=== PATIENT | female | born 1980 | race Two or more races ===

== ENCOUNTER → 2024-01-16 15:14 | Outpatient (REF) | payer BC, SELFPAY | LOC: WDC 15:14 | PROVIDERS: ATTENDING PHYSICIAN Family Medicine | DX: Z12.31 Encounter for screening mammogram for malignant neoplasm of breast (principal) | CPT/HCPCS: 77063; 77067 ==

== ENCOUNTER → 2025-02-11 14:45 | Outpatient (REF) | payer OTHER, SELFPAY | LOC: WDC 14:45 | PROVIDERS: ATTENDING PHYSICIAN Nurse Practitioner Family; FAMILY PHYSICIAN Family Medicine | DX: Z12.31 Encounter for screening mammogram for malignant neoplasm of breast (principal) | CPT/HCPCS: 77063; 77067 ==

== ENCOUNTER 2025-04-20 23:55 | Observation (INO) | payer OTHER, SELFPAY ==
[2025-04-20 18:54] VITALS: BP 140/80
[2025-04-20 19:30] LABS: Hematocrit 38.9 % (37.0-47.0); Hemoglobin 12.1 g/dL (12.0-16.0); Mean Corp Hgb Conc. 31.1 g/dL (33.0-37.0); Mean Corpuscular Volume 80.2 fL (81.0-99.0); Nucleated Red Blood Cells % 0 %; Platelet Count 312 10^3/uL (130-400); Red Cell Dist. Width 15.3 % (11.5-14.5)
[2025-04-20 19:54] LABS: HCG, Serum Qualitative Screen Negative
[2025-04-20 19:58] LABS: ALT (SGPT) 14 U/L (0-35); AST (SGOT) 21 U/L (14-36); Albumin 4.5 g/dl (3.5-5.0); Alkaline Phosphatase 51 U/L (38-126); Blood Urea Nitrogen 13 mg/dl (7-17); Calcium 9.7 mg/dl (8.4-10.2); Carbon Dioxide 27 mmol/L (22-30); Chloride 102 mmol/L (98-107); Glucose 119 mg/dl (70-99); Lipase 118 U/L (23-300); Potassium 4.1 mmol/L (3.5-5.1); Sodium 134 mmol/L (135-145); Total Protein 7.6 g/dl (6.3-8.2); eGFR > 60.00
[2025-04-20 20:49] VITALS: BMI 29.8
[2025-04-20 20:54] VITALS: BP 123/87
[2025-04-20 21:02] VITALS: BP 112/77
[2025-04-20] MEDS: NSS 1000 IV ×2 (21:20→23:57)
[2025-04-20] MEDS: PROTONIX IV 40 MG IV (21:22)
[2025-04-20] MEDS: ZOFRAN 4 MG IV (21:22)
[2025-04-20] MEDS: DILAUDID 0.5 MG IV (21:23)
[2025-04-20 23:00] VITALS: BP 111/58
--- NOTE | 2025-04-20 23:08 | ED.GENMED ---
History of Present Illness
General
Chief Complaint: Abdominal Pain
Source: patient
Exam Limitations: none
Time Seen by Provider: 04/20/25 20:52
Nursing documentation reviewed up to this point in time: agreed with
History of Present Illness
History of Present Illness:
Patient presents to ED secondary to worsening abdominal pain associated with multiple vomiting episodes, started this morning around 11 AM. Patient had eaten breakfast this morning and had fallen asleep. When she got up, her symptoms started.
Patient reports having had similar episode 3 weeks ago, for which she was evaluated by her primary care physician with outpatient blood work. Abdominal pain described as sharp, with radiation to the back, without any alleviating or exacerbating
factors. Denies trauma. Denies fever or chills. Denies diarrhea. Denies recent change in medications or diet. Denies previous history of similar symptoms.
Review of Systems
Review of Systems
Allergies reviewed?: Yes
All Other Systems: ROS reviewed and negative except as documented in HPI and ROS
Constitutional: Reports no symptoms; Denies fever
ABD/GI: Reports abdominal pain, nausea and vomiting; Denies diarrhea
: Reports no symptoms
Musculoskeletal: Reports no symptoms
Skin: Reports no symptoms
Neurological: Reports no symptoms
Phy Exam
Physical Exam
Physical Exam:
Physical Exam
General: moderate distress, not acutely ill. afebrile
Head: nc/at. eomi
Neck: supple. normal range of motion
Heart: s1/s2 regular rate and rhythm
Lungs: no acute respiratory distress. clear bilaterally
Abdomen: normal bowel sounds. mild epigastric/RUQ tenderness to palpation
Neuro: alert and oriented x 3. no focal neurological deficits
Skin: no rash
Psychiatric: well kept. interactive and cooperative
Extremities: no edema. no calf tenderness.
Course
Orders/Labs/Results
Orders:
Orders
04/20/25 18:56
Test Result ONCE
04/20/25 19:00
Complete Blood Count/With Diff Urgent
Comprehensive Metabolic Panel Urgent
HCG, Serum Qualitative Screen Urgent
Lipase Urgent
04/20/25 21:11
HYDROmorphone [Dilaudid] 0.5 mg IV NOW STA
04/20/25 21:12
0.9% Sodium Chloride 1000 ml [Nss] 1,000 ml IV BOLUS
Ondansetron Injectable [Zofran] 4 mg IV NOW STA
Pantoprazole [Protonix IV] 40 mg IV NOW STA
US Abdomen Complete/Upper Urgent
Comment:
Reason For Exam: epigastric/RUQ pain
04/20/25 23:34
Piperacillin/Tazo 3.375 Gram [Zosyn] 3.375 gram in 50 ml IV NOW
04/20/25 23:36
Admit/Transfer Patient As Directed
Co-Sign Provider:
Level of Care: Observation services
Assign to:: Medical/Surgical
Physician / Group: Macho Carpenter
Diagnosis: biliary colic
04/20/25 23:37
PRN Pain Medication Management As Directed
May give lesser potent ordered pain med per pt: Yes
preference::
Protocol:: Medication orders for pain may be administered in a
manner that supports deferring to patient preference
when the pt is:
- Requesting an ordered lesser potent pain medication.
Least to most potent pain medications are defined
as: acetaminophen < NSAID < tramadol < opioids
(morphine, oxycodone, hydromorphone).
- Requesting a lesser dose of the same medication IF
ORDERED.
- Requesting a less intrusive route of administration
if both routes are prescribed by the provider (PO <
IV).
04/20/25 23:38
Code Status As Directed
Resuscitation Status: Full Code
04/20/25 23:45
0.9% Sodium Chloride 1000 ml [Nss] 1,000 ml IV 100 mls/hr
0.9% Sodium Chloride 500 ml [Nss] 500 ml IV 100 mls/hr
04/21/25 00:19
Acetaminophen [Tylenol] 650 mg PO Q4HPRN PRN
HYDROmorphone [Dilaudid] 0.5 mg IV Q4HPRN PRN
Ketorolac [Toradol] 10 mg IV Q6HPRN PRN
Ondansetron Injectable [Zofran] 4 mg IV Q6HPRN PRN
04/21/25 00:19
SURGICAL CONSULT Routine
Consulting Provider: Harrison Hatch
Was physician already notified: Yes
Activity As Directed
Activity Level: Ambulate
Pneumatic Compression Sleeves As Directed
Type: Knee high
Vital Signs As Directed
Frequency: Per unit guidelines
Weight As Directed
Frequency: Once
Comment: on admission
DX Deep Vein Thrombosis Video Routine
04/21/25 Breakfast
NPO
Allow oral meds: Yes
Allow clear liquids: No
Levothyroxine [Synthroid] 100 mcg PO DAILY @ 0600
Piperacillin/Tazo 3.375 Gram [Zosyn] 3.375 gram in 50 ml IV Q6H
04/21/25 08:00
Sertraline HCl [Zoloft] 25 mg PO DAILY
Abnormal Lab Results
04/20/25
19:00
WBC 14.7 H 10^3/uL
(4.8-10.8)
MCV 80.2 L fL
(81.0-99.0)
MCH 24.9 L pg
(27.0-31.0)
MCHC 31.1 L g/dL
(33.0-37.0)
RDW 15.3 H %
(11.5-14.5)
MPV 11.2 H fL
(7.4-10.4)
Abs Immat Gran (auto) 0.1 H 10^3/uL
(0-0.05)
Absolute Neuts (auto) 11.2 H 10^3/uL
(1.4-6.5)
Absolute Eos (auto) 1.0 H 10^3/uL
(0-0.7)
Neutrophils % 76.7 H %
(42.2-75.2)
Lymphocytes % 12.6 L %
(20.5-51.1)
Eosinophils % 6.6 H %
(0-6)
Sodium 134 L mmol/L
(135-145)
Glucose 119 H mg/dl
(70-99)
04/20/25 19:00
04/20/25 19:00
Vital Signs
Initial and Last Documented VS:
Initial Vital Signs
Temp Pulse Resp BP Pulse Ox
98.5 F 77 16 140/80 98
04/20/25 18:54 04/20/25 18:54 04/20/25 18:54 04/20/25 18:54 04/20/25 18:54
Last Documented Vital Signs
Temp Pulse Resp BP Pulse Ox
98.9 F 60 17 117/61 99
04/21/25 15:32 04/21/25 15:32 04/21/25 15:32 04/21/25 15:32 04/21/25 16:01
MDM/Problems Addressed
MDM/Problems Addressed:
History, exam, blood work, and abdominal ultrasound concerning for acute cholecystitis. Patient reports improvement after treatment, but on repeat exam, abdominal pain persist. Discussed with on-call surgery (Dr. Hatch) who recommends admission
to hospitalist service tonight.
*Pulse Oximetry
SaO2: 98
Oxygen Mode of Delivery: Room air
Patient hypoxic: no
*Critical Care Note
Total Time (30-74mins, 75-104mins- exclusive of procedures): Not Applicable
ED Attending Note
-
Portions of this chart may have been created with voice recognition software.� Occasional wrong word or��sound alike� substitutions may have occurred due to the inherent limitations of voice recognition software.
Discharge Plan
Departure
Patient Disposition: Admit
Date of Disposition: 04/20/25
Time of Disposition: 23:11
Admit to: Med/Surg
Presentation/result/management discussed w/ accepting MD/DO: Hospitalist
Discharge Problem:
Abdominal pain
Interventions
Interventions:
*Risk Screen - Suicide Last Done: 04/20/25 18:54
*General Assessment Last Done: 04/20/25 18:54
*Neglect/Abuse Screening Last Done: 04/20/25 18:54
*ED- Fall Risk Assessment Last Done: 04/20/25 18:54
*ED COVID-19 Vaccine History Last Done: 04/20/25 18:54
*ED Influenza Vaccine History Last Done: 04/20/25 18:54
*Nursing Disposition Last Done: 04/21/25 00:29
[facility] Assessment Last Done: 04/20/25 21:06
Discharge Date and Time
Discharge Date/Time: 04/21/25 00:29
--- NOTE | 2025-04-20 23:12 | HPS.HSE ---
Family Physician
-
Family Physician: Ricki Cardenas
Chief Complaint
-
abdominal pain
History of Present Illness
Patient is a 44-year-old female with past medical history significant for hypothyroidism and depression who presented to [facility] ED for evaluation of abdominal pain. Patient reports episode of similar abdominal pain3 weeks ago that resolved on its own.
Pain today was diffuse across abdomen and radiated to back and currently is localized to the epigastric region. She does report associated nausea and vomting. Denies any fever, chills, cough, shortness of breath or chest pain.
Medical History
Past Medical History
Past Medical History: Reports Other
Additional Past Medical History:
hypothyroidism
depression
gout
menorrhagia
Past Surgical History: Reports None
Social History
Tobacco: Non-smoker
Alcohol: None
Drug: None
Family History
Family History: Not pertinent
Allergies / Home Medications
Allergies reflects when Allergies were last updated in [employer].
Home Medications with original date entered in [employer]
Allergy/Medication List:
Allergies
Allergy/AdvReac Type Severity Reaction Status Date / Time
food coloring Allergy Unknown Uncoded 04/20/25 18:54
Home Medications
levothyroxine 100 mcg tablet 100 mcg PO DAILY 04/20/25
sertraline 25 mg tablet 25 mg PO DAILY 04/20/25
Review of Systems
-
History Source: Patient
Constitutional: Denies Fever or Chills
EENT: Denies Sore Throat
Respiratory: Denies Cough or Trouble Breathing
Cardiac: Denies Chest Pain, Diaphoresis, Palpitations or Syncope
Abdomen/GI: Reports Abdominal Pain, Nausea, Vomiting and Constipated; Denies Diarrhea
: Denies Dysuria, Frequency or Urgency
Skin: Denies Rash
Neurological: Denies Dizzy, Headache, Weakness or Numbness
Physical Exam
Vital Signs
Vital Signs
Temp Pulse Resp BP Pulse Ox
98.5 F 58 15 111/58 98
04/20/25 18:54 04/20/25 23:00 04/20/25 23:00 04/20/25 23:00 04/20/25 23:08
Physical Exam
General: Well Developed, Well Nourished, No Apparent Distress and Conversant
HEENT: NormoCephalic, Moist mucous membranes, Nose Appears Normal and Ears Appear Normal
Respiratory: Clear and Non Labored Respirations
Cardiac: S1/S2 and Regular Rhythm; No Murmur
GI: Soft, Non Distended, Normal Bowel Sounds and Tender
Musculoskeletal: No Clubbing, No Cyanosis and No Edema
Skin: Warm and IV/Catheter Site
Neuro: Awake and AO x 3
Psych: Calm and Intact Judgment/Insight
Laboratory Results
-
04/20/25 19:00
04/20/25 19:00
Laboratory Results
Total Bilirubin 0.7 mg/dl (0.2-1.3) 04/20/25 19:00
AST 21 U/L (14-36) 04/20/25 19:00
ALT 14 U/L (0-35) 04/20/25 19:00
Alkaline Phosphatase 51 U/L (38-126) 04/20/25 19:00
Lipase 118 U/L (23-300) 04/20/25 19:00
Data Reviewed
-
Ultrasound: Report Reviewed by me (Abd: 1. No sonographic evidence for cholelithiasis or biliary obstruction. 2. Mild gallbladder sludge. )
Lab Data: Labs Reviewed by me (WBC 14.7, Neut 76.7, Na+ 134)
Impression/Plan
-
IMPRESSION/PLAN:
#abdominal pain 2/2 GERD vs. cholecystitis vs. biliary colic
diffuse upper abdominal pain that radiated to back, associated with nausea and vomiting
WBC 14.7, Neut 76.7, Na+ 134
Abd US: 1. No sonographic evidence for cholelithiasis or biliary obstruction.
2. Mild gallbladder sludge.
- Admit to med/surg
- Consult Surgery
- IV Zosyn
- NPO
- pain regimen
- antiemetics
#hypothyroidism
- continue levothyroxine
#depression
- continue sertraline
Code status: Full code
DVT prophylaxis: SCDs
--- NOTE | 2025-04-20 23:36 | W.PN.UPDATE ---
Update Note
Progress Note Update
This is an addendum to H&P written by Mini Perdue on 04/20/2025. �Patient seen and examined independently with SPECIAL PROCEDURE TECHNOLOGIST.
44-year-old female past medical history of hypothyroidism, anxiety/depression, menorrhagia, iron deficiency, gout presenting with abdominal pain across her upper abdomen with radiation to the back. �Had similar pain 3 weeks ago. �Also had acid
reflux since then.
Patient was noted to have eosinophilia on labs few months ago. �No prior history of parasite infection or asthma. �He has not been to [place] in few years.
Vital signs normal. �Labs show leukocytosis. �Eosinophilia present.
Abdominal ultrasound shows no sonographic evidence of cholelithiasis or biliary obstruction. �Gallbladder sludge present.
Patient with likely biliary colic versus developing acute cholecystitis. �N.p.o., IV fluids, Zosyn, general surgery consulted. �Dilaudid for pain.
Unclear etiology of eosinophilia, could be rheumatologic or hematologic etiology. Outpatient follow up hematology.�
[2025-04-20] MEDS: ZOSYN 50 IV (23:57)
[2025-04-21 00:09] VITALS: BP 106/72
[2025-04-21 00:39] VITALS: BP 119/71; BMI 28.7
--- NOTE | 2025-04-21 01:39 | PTCARENOTE ---
Received patient from ED via stretcher; [employer] order. VSS. AAOx3, 08/09 abd pain. IVF infusing per MD order. PMH and medications reviewed by this RN and patient. Plan of care discussed. Call correa within reach.
[2025-04-21] MEDS: SYNTHROID 100 MCG PO (05:45)
[2025-04-21] MEDS: ZOSYN 50 IV ×4 (05:45→23:41)
[2025-04-21 07:40] VITALS: BP 102/50
--- NOTE | 2025-04-21 07:51 | CON.GS ---
Consultation
-
Date/Time Consultation Performed: 04/21/2025 7:40 AM
Performing Provider: Holden
Reason for Consultation: Possible cholecystitis
Medical History
-
Chief Complaint: Epigastric and right upper quadrant abdominal pain
History of Present Illness:
Patient is a 44-year-old female with past medical history of hypothyroidism anxiety/depression who presented to the emergency department secondary to the acute onset of epigastric and right upper quadrant abdominal pain.
She was in her usual baseline state of health until yesterday around 11 AM she developed the acute onset of epigastric abdominal pain and right upper quadrant which rapidly increased in severity and was radiating towards her back. She had nausea
and multiple episodes of vomiting. Due to the persistence of her symptoms she presented for emergency department evaluation yesterday evening. She recalls a similar episode of pain about 2 to 3 weeks ago but it was milder and subsided after a few
hours. She only had nausea without episode and no vomiting. No recent change in bowel habits.
Past Medical History
Past Medical History: Hypothyroidism and Psychiatric
Past Surgical History: None
Social History
Living: With Family
Family History
Family History: Reviewed & Noncontributory
Allergies / Home Medications
Allergy/AdvReac Type Severity Reaction Status Date / Time
food coloring Allergy Unknown Uncoded 04/20/25 18:54
�Medication �Instructions �Recorded �Confirmed �Type
levothyroxine 100 mcg tablet 100 mcg PO DAILY 04/20/25 04/21/25 History
sertraline 25 mg tablet 25 mg PO DAILY 04/20/25 04/21/25 History
Review of Systems
-
History Source: Patient
All other systems: Negative unless noted
A 10 point review of systems was completed, and was negative except as per HPI.
Physical Exam
Vital Signs
Temp Pulse Resp BP Pulse Ox
98.0 F 64 17 102/50 97
04/21/25 07:40 04/21/25 07:40 04/21/25 07:40 04/21/25 07:40 04/21/25 07:40
04/20/25 04/21/25 04/22/25
06:59 06:59 06:59
Actual Weight 71.033 kg
Body Mass Index (BMI) 28.7
Lab Results
04/20/25 19:00
04/20/25 19:00
WBC 14.7 10^3/uL (4.8-10.8) H 04/20/25 19:00
Hgb 12.1 g/dL (12.0-16.0) 04/20/25 19:00
Hct 38.9 % (37.0-47.0) 04/20/25 19:00
Plt Count 312 10^3/uL (130-400) 04/20/25 19:00
Abs Immat Gran (auto) 0.1 10^3/uL (0-0.05) H 04/20/25 19:00
Neutrophils % 76.7 % (42.2-75.2) H 04/20/25 19:00
Physical Exam
General: Well Developed, Well Nourished, No Apparent Distress and Comfortable
HEENT: Normocephalic and Anicteric
Respiratory: Non Labored Respirations
GI: Soft, Non Distended and Tender (Tenderness to palpation epigastrium and right upper quadrant but no rebound rigidity or guarding. Negative clinical Rudolph sign.)
Skin: Warm
Neuro: AO x 3
Psych: Calm
Data Reviewed
-
Ultrasound: Image Personally Visualized and interpreted (Gallbladder with layering sludge. No shadowing stones. No wall thickening. No Ray cholecystic edema. Negative sonographic Rudolph sign. No biliary ductal dilation. Common bile duct 3.5
mm. Liver, spleen and kidneys unremarkable.)
Labs: Labs Reviewed by me (White blood cell count 14.7, hemoglobin 12, platelets 312; Chemistry panel unremarkable including all normal liver function profile testing and a normal lipase.)
Assessment / Plan
-
Assessment: 44-year-old female presenting with symptoms highly suggestive of acute biliary colic, second episode in the last 3 weeks. This time with nausea and vomiting.
Ultrasound imaging with sludge. No shadowing gallstones. Symptoms improving this a.m.
Reviewed with patient given lack of shadowing gallstones will obtain HIDA scan to evaluate for cystic duct obstruction which may help further guide recommendations for consideration of cholecystectomy versus further imaging.
Plan: Await HIDA results
Will further discuss surgical treatment options/recommendations pending results
Continue n.p.o., IV fluids and supportive care
--- NOTE | 2025-04-21 08:16 | W.PN.HOSP.TC ---
Addendum entered and electronically signed by Cielo Lion MD 04/21/25 16:36:
Seen and examined the patient. Agree with plan formulated by the resident. See changes in my documentation.
44-year-old female with abdominal pain
Ultrasound of the abdomen-no sonographic evidence of cholelithiasis or biliary obstruction. Mild gallbladder sludge
HIDA scan-patent cystic duct. Patent common bile duct.
[facility]: S1-S2 normal
Chest: CTA B/L
Abdomen: Soft, Mild epigastric discomfort.
# Abdominal pain
Ultrasound and HIDA scan as above
Currently on IV Zosyn
MRI/MRCP ordered
Placed on low-fat
Add PPI
Surgery following
If MRI negative will need GI evaluation for an EGD
Keep n.p.o. after midnight
# Hypothyroidism-continue levothyroxine
# Depression-continue sertraline
# History of gout
# History of anemia
# DVT prophylaxis-Lovenox.
# Full code
D/W RN
D/W at bed side
D/W surgeon
Part of this note was created using voice recognition system. Occasional wrong word or��sound alike� substitutions may have inadvertently occurred due to the inherent limitations of voice recognition software. If noted kindly bring it to my
attention for correction.
Original Note:
Today's Communication/Plan
-
HIDA Scan today. Surgical Recommendations.
Assessment / Plan
Assessment / Plan
Luis Manuel Storm is a 44F w/ PMHx hypothyroidism, gout, and MDD who presented to the ED with epigastric abdominal pain, nausea, and vomiting with leukocytosis and mild gallbladder sludge but no stones seen on imaging. She was started on
empiric IV antibiotics and admitted for observation and surgical evaluation. DDx includes gastritis, cholelithiasis, biliary colic vs. developing cholecystitis
1. Abdominal Pain
- WBC 14.7 (elevated PMN/eosinophil), otherwise unremarable labs
- US w/ gallbladder sludge but no evidence for cholelithiasis or biliary obstruction
- HIDA scan to evaluate for cystic duct obstruction, appreciate surgery recs
- Continue as needed pain control, antiemetic
- N.p.o.
- Continue IV Zosyn
2. Eosinphilia
- Follow CBC in a.m.
- Unlikely contributory, consider outpatient hematology follow-up
3. Hypothyroidism
- Continue levothyroxine
4. MDD
- Continue sertraline
Code Status: FULL CODE
Diet: NPO
DVT PPx: SCDs
Anticipated Discharge: 24 - 48 hours
Subjective/Interval History
-
Date of Service: April 21, 2025
Luis Manuel Storm is a 44F w/ PMHx hypothyroidism, gout, MDD who presented to the ED for abdominal pain. Since this is my first time meeting the patient, I performed a full history and physical.
Briefly, she states that her abdominal pain started around 11 AM yesterday. She was in her usual state of health, ate breakfast around 7:30 AM, and began to experience this abdominal pain approximately 3 to 4 hours later. The pain is described as
epigastric, radiating to the back, achy and constant. Patient rated pain at 10 out of 10 at onset, but now is 0 out of 10. Patient endorses a similar episode 3 weeks ago, however it was manageable, and pain was much worse yesterday. Patient
denies any provocative or palliative factors. Patient did not take any pain medications at home. Associated with this abdominal pain is nausea and vomiting. Patient states that she vomited 4 times yesterday and describes the vomitus as undigested
food without blood or bile. She otherwise denies fevers, chills, chest pain, shortness of breath, constipation, or diarrhea. She additionally denies any history of urinary tract infections, urinary frequency, urgency, or burning with urination.
Objective Data
-
Vital Signs:
Vital Signs
Temp Pulse Resp BP Pulse Ox
98.0 F 64 17 102/50 97
04/21/25 07:40 04/21/25 07:40 04/21/25 07:40 04/21/25 07:40 04/21/25 07:40
I&O
04/20/25 04/21/25 04/22/25
06:59 06:59 06:59
Intake Total 600 / 600
Balance 600 / 600
Review of Systems
-
History Source: Patient
All other systems: Reviewed and negative
Physical Exam
-
General: Well Developed, Well Nourished, No Apparent Distress, Comfortable and Conversant
HEENT: Normocephalic, Atraumatic and Anicteric
Respiratory: Clear to Auscultation and Non Labored Respirations; Negative Wheezes, Rales, Rhonchi or Crackles
Cardiac: Regular Rhythm and S1/S2; Negative Murmur or Rub
GI: Soft, Nondistended, Normal Bowel Sounds, Tender (mild tenderness in the epigastrium ) and Other (Negative Rudolph Sign)
Genito-urinary: No Costovertebral Tender
Musculoskeletal: No Clubbing, No Cyanosis and No Edema
Skin: Warm
Neuro: Awake, Alert and Oriented
Psych: Calm
Data Reviewed
-
Total Time Spent with Patient (in minutes): 33
Ultrasound: Report Reviewed by me and Discussed with Patient
Labs: Labs Reviewed by me and Discussed with Patient
[2025-04-21] MEDS: ZOLOFT 25 MG PO (10:50)
[2025-04-21] MEDS: NSS (PRESERVATIVE FREE) 10 ML IV (10:51)
[2025-04-21] MEDS: PROTONIX IV 40 MG IV (10:52)
[2025-04-21] MEDS: NSS 1000 IV ×2 (11:53→23:42)
--- NOTE | 2025-04-21 12:13 | W.PN.UPDATE ---
Update Note
Progress Note Update
HIDA scan negative for cystic duct obstruction. Gallbladder rapidly visualized.
Follow-up with patient as well as her via phone call. Given lack of presence of stones on ultrasound imaging and no radiographic stigmata highly suggestive of cholecystitis recommended further imaging with MRI which will evaluate for the
possibility of cholelithiasis not seen on ultrasound imaging or potentially gallbladder wall thickening or edema suggestive of cholecystitis.
If further MRI workup negative then would consider GI consultation.
[2025-04-21 15:32] VITALS: BP 117/61
--- NOTE | 2025-04-21 16:33 | CM ---
Patient seen at bedside with on 1 acute. patient states that she is uncomfortable. Patient lives with in a 2 story home with no needs for DME. [facility] on [address] and her PCP is Dr. Cardenas. Patient stated that she
understood OBS form after review with CM and completed signed form placed on chart. Patient with copy. CM will continue to follow for discharge planning needs.
Plan; home with no needs anticipated at this time.
[2025-04-21] MEDS: LOVENOX 40 MG SC (18:16)
[2025-04-21 23:00] VITALS: BP 107/64
[2025-04-22] MEDS: ZOSYN 50 IV ×2 (05:31→13:28)
[2025-04-22] MEDS: SYNTHROID 100 MCG PO (05:31)
--- NOTE | 2025-04-22 07:12 | W.PN.HOSP.TC ---
Addendum entered and electronically signed by Cielo Lion MD 04/22/25 15:30:
Seen and examined the patient. Agree with plan formulated by the resident. See changes in my documentation.
44-year-old female with abdominal pain
Ultrasound of the abdomen-no sonographic evidence of cholelithiasis or biliary obstruction. Mild gallbladder sludge
HIDA scan-patent cystic duct. Patent common bile duct.
MRI of the abdomen-mildly distended gallbladder with minimal adjacent Ray cholecystic fluid. No evidence of cholelithiasis choledocholithiasis or biliary obstruction. Moderate amount of fecal matter throughout the proximal colon. Uterine
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 Small bilateral ovarian cyst. Minimal peritoneal fluid in the pelvis. Small bilateral pleural effusions
CVS: S1-S2 normal
Chest: CTA B/L
Abdomen: Soft, no discomfort noted on exam
# Abdominal pain
Ultrasound and HIDA scan as above
Currently on IV Zosyn
MRI/MRCP as above
Tolerating diet
Continue PPI as needed
Needs EGD as outpatient
Patient has an outpatient appointment set up after discussing with GI
# Adenomyosis-outpatient follow-up with MASTER SHEET CLERK
# Constipation-MiraLAX daily as outpatient
# Hypothyroidism-continue levothyroxine
# Depression-continue sertraline
# History of gout
# History of anemia
# DVT prophylaxis-Lovenox.
# Full code
D/W RN
D/W
D/W s surgery and GI
More than 30 minutes spent in discharge including
Final examination of the patient
Summarizing hospital stay
Instructions for continuing care to all relevant caregivers
Preparation of discharge records, prescriptions, and referral forms
Part of this note was created using voice recognition system. Occasional wrong word or��sound alike� substitutions may have inadvertently occurred due to the inherent limitations of voice recognition software. If noted kindly bring it to my
attention for correction.
Original Note:
Today's Communication/Plan
-
.
Assessment / Plan
Assessment / Plan
Luis Manuel Storm is a 44F w/ PMHx hypothyroidism, gout, and MDD who presented to the ED with epigastric abdominal pain, nausea, and vomiting with leukocytosis and mild gallbladder sludge but no stones seen on imaging. She was started on
empiric IV antibiotics and admitted for observation and surgical evaluation. DDx includes gastritis, cholelithiasis, biliary colic vs. developing cholecystitis
1. Abdominal Pain
- WBC 14.7 (elevated PMN/eosinophil) on admission, otherwise unremarkable labs
- WBC downtrending (11.0), afebrile
- US w/ gallbladder sludge but no evidence for cholelithiasis or biliary obstruction
- HIDA scan: patent cystic duct and CBD
- MRI: mild GB distension and wall fluid; mild pericholecystic fluid
- Will reach out to GI for potential EGD
- Continue as needed pain control, antiemetic
- Surgery planning to continue GB workup in outpatient setting; if GI okay, can do PO challenge
2. Eosinphilia
- Follow CBC in a.m.
- Unlikely contributory, consider outpatient PCP/hematology follow-up
3. Hypothyroidism
- Continue levothyroxine
4. MDD
- Continue sertraline
5. Mullerian Duct Abnormality
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
- Non-contributory
Code Status: FULL CODE
Diet: NPO
DVT PPx: SCDs
Anticipated Discharge: Within 24 hours
Subjective/Interval History
-
Date of Service: April 22, 2025
Patient seen and examined while resting comfortably in bed.
Patient endorses a near resolution of her abdominal pain.
Endorses a mild headache, but attributes it to lying in bed for a long period of time and declines any pain medication for it at this time.
Otherwise denies any other acute complaints including nausea, vomiting or diarrhea.
Objective Data
-
Labs:
Laboratory Results
04/22/25
06:45
WBC Pending
Hgb Pending
Hct Pending
Plt Count Pending
Sodium Pending
Potassium Pending
Chloride Pending
Carbon Dioxide Pending
BUN Pending
Creatinine Pending
Glucose Pending
Calcium Pending
Total Bilirubin Pending
AST Pending
ALT Pending
Alkaline Phosphatase Pending
Vital Signs:
Vital Signs
Temp Pulse Resp BP Pulse Ox
98.3 F 62 16 107/64 100
04/21/25 23:00 04/21/25 23:00 04/21/25 23:00 04/21/25 23:00 04/21/25 23:00
I&O
04/21/25 04/22/25 04/23/25
06:59 06:59 06:59
Intake Total 600 / 600 1250 / 1250
Balance 600 / 600 1250 / 1250
Review of Systems
-
History Source: Patient
All other systems: Reviewed and negative
Physical Exam
-
General: Well Developed, Well Nourished, No Apparent Distress, Comfortable and Conversant
HEENT: Normocephalic, Atraumatic, Moist Mucous Membranes and Anicteric
Respiratory: Clear to Auscultation and Non Labored Respirations; Negative Wheezes, Rales, Rhonchi or Crackles
Cardiac: Regular Rhythm and S1/S2; Negative Murmur, Calf Tenderness or Anila's Sign
GI: Soft, Nondistended, Normal Bowel Sounds and Tender (mild, epigastrium. Other was NTTP. )
Musculoskeletal: No Clubbing, No Cyanosis and No Edema
Skin: Warm
Neuro: Awake, Alert and Oriented
Psych: Calm
Data Reviewed
-
Total Time Spent with Patient (in minutes): 22
Medical Tests (Nuc Med, Echo etc): Report Reviewed by me and Discussed with Patient
Labs: Labs Reviewed by me and Discussed with Patient
[2025-04-22 07:35] LABS: ALT (SGPT) 11 U/L (0-35); AST (SGOT) 14 U/L (14-36); Albumin 3.5 g/dl (3.5-5.0); Alkaline Phosphatase 35 U/L (38-126); Blood Urea Nitrogen 10 mg/dl (7-17); Calcium 8.4 mg/dl (8.4-10.2); Carbon Dioxide 26 mmol/L (22-30); Chloride 108 mmol/L (98-107); Estimated Creatinine Clearance 84 ml/min; Glucose 83 mg/dl (70-99); Potassium 3.9 mmol/L (3.5-5.1); Sodium 139 mmol/L (135-145); Total Protein 6.0 g/dl (6.3-8.2); eGFR > 60.00
[2025-04-22 07:50] VITALS: BP 125/68
[2025-04-22 07:55] LABS: Hematocrit 31.7 % (37.0-47.0); Hemoglobin 10.3 g/dL (12.0-16.0); Mean Corp Hgb Conc. 32.5 g/dL (33.0-37.0); Mean Corpuscular Volume 79.8 fL (81.0-99.0); Red Cell Dist. Width 15.2 % (11.5-14.5)
[2025-04-22] MEDS: PROTONIX IV 40 MG IV (09:04)
[2025-04-22] MEDS: NSS (PRESERVATIVE FREE) 10 ML IV (09:04)
[2025-04-22] MEDS: ZOLOFT 25 MG PO (09:05)
--- NOTE | 2025-04-22 09:22 | W.PN.GS2 ---
Addendum entered and electronically signed by Israel Khalil MD 04/22/25 12:31:
I saw and examined the patient independently.
The Tube Cleaning Operator's note was reviewed and I agree with the note, assessment and plan except where noted below.
Comment: MRI reviewed, no gallstones noted.
Okay to p.o. challenge and if clinically well okay to discharge with plans for close follow-up. Given her history and exam on admission I suspect that this is still gallbladder mediated we can continue this workup as an outpatient.
No role for antibiotics on discharge.
Patient agreeable to plan of care above.
Original Note:
Today's Communication / Plan
-
MRI
Assessment / Plan
-
Assessment: 44-year-old female presenting with symptoms highly suggestive of acute biliary colic, second episode in the last 3 weeks. This time with nausea and vomiting.
Ultrasound imaging with sludge. No shadowing gallstones. Symptoms improving this a.m.
HIDA negative for cystic duct obstruction. Gallbladder rapidly visualized.
Await MRI which will evaluate for the possibility of cholelithiasis not seen on ultrasound imaging or potentially gallbladder wall thickening or edema suggestive of cholecystitis.
Plan:
Await MRI results
ABX as per primary
Will further discuss surgical treatment options/recommendations pending results
Continue n.p.o., IV fluids and supportive care
Subjective Data
-
Date of Service: April 22, 2025
Pt seen and examined at bedside with Dr. Khalil. Denies pain. Denies n/v. Tolerated LFD last night.
Objective Data
-
Intake and Output
04/21/25 04/22/25 04/23/25
06:59 06:59 06:59
Intake Total 600 / 600 1250 / 1250
Balance 600 / 600 1250 / 1250
Intake:
IV fluids (Total) 600 / 600 1200 / 1200
IV piggybacks
Other:
Number of approximated MODERATE 3
amounts of urine
Vital Signs
Temp Pulse Resp BP Pulse Ox
98.0 F 64 17 125/68 99
04/22/25 07:50 04/22/25 07:50 04/22/25 07:50 04/22/25 07:50 04/22/25 07:50
Lab Results
04/22/25 06:45
04/22/25 06:45
Calcium 8.4 mg/dl (8.4-10.2) 04/22/25 06:45
Total Bilirubin 0.7 mg/dl (0.2-1.3) 04/22/25 06:45
AST 14 U/L (14-36) 04/22/25 06:45
ALT 11 U/L (0-35) 04/22/25 06:45
Alkaline Phosphatase 35 U/L (38-126) L 04/22/25 06:45
Total Protein 6.0 g/dl (6.3-8.2) L D 04/22/25 06:45
Albumin 3.5 g/dl (3.5-5.0) 04/22/25 06:45
Physical Exam
-
NAD
ABD soft, nt, nd
[2025-04-22 09:28] LABS: Platelet Count 249 10^3/uL (130-400)
[2025-04-22] MEDS: NSS IV (13:46)
[2025-04-22 15:15] VITALS: BP 113/56
--- NOTE | 2025-04-22 16:08 | W.DCSUMMARY ---
Discharge Summary
Discharge Data
Date of Admission: 04/20/25
Date of Discharge: 04/22/25
Total time spent discharging patient (in min): 45
-
Pending Results: No
Hospital Course
Luis Manuel Storm is a 44-year-old female with a past medical history of hypothyroidism, gout and depression who presented to the Emergency Department at [facility] on 04/20/2025 with epigastric abdominal pain, nausea, and vomiting.
HISTORY OF PRESENT ILLNESS
Patient endorsed that her abdominal pain started around 11 AM on 04/20/2025. She was in her usual state of health and ate breakfast around 7:30 AM, and then began to experience abdominal pain approximately 3 to 4 hours later. The pain was
described as epigastric, radiating to the back, achy and constant. She endorsed a similar episode approximately 3 weeks ago, however at that time it was manageable, and the pain was worse on the day of arrival, prompting her visit to the emergency
department. She denied any provocative or palliative factors. She did not take any pain medication at home. Patient also vomited 4 times that day and described the vomitus as undigested food without blood or bile. She otherwise denied fevers,
chills, chest pain, shortness of breath, constipation, or diarrhea. She also denied any urinary symptoms.
ED COURSE
On arrival, patient was afebrile with stable vital signs. She had a leukocytosis of 14.7 K. Basic metabolic panel and liver function tests were unremarkable. Lipase was negative. An ultrasound of the abdomen revealed mild gallbladder sludge with
no sonographic evidence for cholelithiasis or biliary obstruction. Patient's pain improved with pain medication, IV fluids, and antiemetics, however, since her pain persisted the patient was admitted for surgical evaluation and IV antibiotics.
HOSPITAL COURSE
By the next morning, patient's pain was a 0 out of 10. She received a HIDA scan which showed a patent cystic duct and patent common bile duct. Given these findings, an abdominal MRI was ordered for more definitive imaging. Abdominal MRI showed
the findings below.
Abdomen MRI
1. Mildly distended gallbladder with minimal adjacent pericholecystic fluid.
2. No MRI evidence for cholelithiasis, choledocholithiasis, or biliary obstruction.
3. Moderate amount of fecal material throughout the proximal colon.
4. Uterine adenomyosis and suspected uterine mullerian duct anomaly.
5. Small bilateral ovarian cysts.
6. Minimal peritoneal fluid in the pelvis.
7. Small bilateral pleural effusions.
Given these findings, it was decided that the patient can receive additional evaluation through the general surgery service and gastroenterology service in an outpatient setting. She tolerated an oral diet, and was discharged home with Protonix and
MiraLAX. She was instructed to follow-up with the general surgery service, roll tube setter, and an PSYCHOMETRIST in addition to her primary care physician for a transition of care visit.
DISCHARGE INSTRUCTIONS
Follow up with primary care provider in less than one week for a transition of care visit.
The patient exhibited eosinphilia on labs; do a repeat CBC in one week and evaluate if still present.
Follow a low-fat diet until otherwise instructed.
Use Miralax as needed for constipation as MRI showed a moderate amount of fecal material in the colon.
Follow up with the roll tube setter on May 02, 2025.
Take Protonix as needed for heartburn in the interim.
Follow up with General Surgery, Dr. Hatch. F
Follow up with PSYCHOMETRIST.
Adenomyosis and ovarian cysts seen on MRI.
Discharge Plan
-
Patient Disposition: Home (Routine Discharge)
Discharge Diagnosis/Procedures: Epigastric and Right Upper Quadrant Abdominal Pain Of Unknown Etiology
Eosinophilia
Constipation
History of Hypothyroidism
History of Gout
History of Anemia
Adenomyosis of uterus and ovarian cysts
Condition: Fair
Diet: Low Fat
Activity: As tolerated
Driving Restrictions: As prior to admission
Bathing Restrictions: None
Blood Work: Get a CBC with differential count in one week with PCP Hospital Follow Up.
Activity Restrictions/Additional Instructions:
Follow up with the General Surgeon for continued evaluation of potential gallbladder disease.
Follow up with the Gastronenterologist on 05/02/2025 at 10:00 AM for evaluation.
Follow-up with [facility] doctor for adenomyosis of uterus and also small ovarian cysts
Referrals:
Ricki Cardenas MD [Family Provider, [facility]] - in less than 1 week
Molly Ahmadi DO [Active, Gynecology]
Referral Note: Adenomyosis of the uterus and ovarian cyst
Harrison Hatch MD [Active, Surgical]
Referral Note: if needed
Parrish Ruth DO [Active, Gastroenterology] - 05/02/25 10:00 am
Prescriptions:
New
pantoprazole [Protonix] 40 mg tablet,delayed release (DR/EC)
40 mg PO DAILY PRN (Reason: Heartburn) Qty: 14 0RF
polyethylene glycol 3350 [Miralax] 17 gram powder in packet
17 g PO DAILY Qty: 30 0RF
Continued
levothyroxine 100 mcg Tablet
100 mcg PO DAILY
sertraline 25 mg Tablet
25 mg PO DAILY
Discharge Orders:
Discharge Patient (As Directed); Ordered 04/22/25
Ordered By: Cielo Lion
Discharge Date and Time
Print Language: [id number]
== END 2025-04-22 16:58 | disposition home or self-care (01) ==
LOC: 1 ACUTE 23:55
PROVIDERS: Registered Nurse; Student in an Organized Health Care Education/Training Program; ADMITTING PHYSICIAN Hospitalist; ATTENDING PHYSICIAN Hospitalist; CONSULT PHYSICIAN Surgery; EMERGENCY PHYSICIAN Emergency Medicine; FAMILY PHYSICIAN Family Medicine
DX: R10.13 Epigastric pain (principal); E03.9 Hypothyroidism, unspecified; F32.9 Major depressive disorder, single episode, unspecified; R10.11 Right upper quadrant pain; D72.10 Eosinophilia, unspecified; K59.00 Constipation, unspecified; M10.9 Gout, unspecified; N80.03 Adenomyosis of the uterus; Z86.2 Personal history of diseases of the blood and blood-forming organs and certain disorders involving the immune mechanism
CPT/HCPCS: 74183; 76700; 78226; 80053; 83690; 84703; 85025; 85027; 96374; 96375; 99285; A9537; A9575; G0378

== ENCOUNTER 2025-05-23 06:27 | Day surgery (SDC) | payer OTHER, SELFPAY | END 2025-05-23 09:58 | disposition home or self-care (01) | LOC: GI 06:27 | PROVIDERS: ATTENDING PHYSICIAN Student in an Organized Health Care Education/Training Program; FAMILY PHYSICIAN Family Medicine | DX: D50.9 Iron deficiency anemia, unspecified (principal); K44.9 Diaphragmatic hernia without obstruction or gangrene; R10.84 Generalized abdominal pain; R11.2 Nausea with vomiting, unspecified; K29.50 Unspecified chronic gastritis without bleeding; B96.81 Helicobacter pylori [H. pylori] as the cause of diseases classified elsewhere | CPT/HCPCS: 43239; 88305; 88342 ==